=== PATIENT | female | born 1960 | race African-American/Black ===

== ENCOUNTER 2017-03-11 17:56 | Emergency (ER) | payer OTHER ==
[~2017-03-11] VITALS: Ht 175.3 cm; Wt 90.0 kg
[2017-03-11] MEDS ORDERED: ALBU4TAB6 PO (18:01)
[2017-03-11] MEDS ORDERED: ASPIRIN 81MG TABLET PO ONE (18:15)
[2017-03-11] MEDS ORDERED: IPRATROPIUM BROMIDE (0.02%) 0.5MG/2.5ML NEB HHN STA (18:25)
[2017-03-11] MEDS ORDERED: METHYLPREDNISOLONE SOD SUCC 125 MG/2 ML VIAL IV STA (18:25)
[2017-03-11] MEDS: ALBUTEROL (0.083%) 2.5MG/3ML NEB HHN SCH ×3 (18:45→20:21)
[2017-03-11 18:57] LABS: BASOPHILS % 0.9 % (0.0-2.0); EOSINOPHILS % 0.8 % (0.0-5.0); HEMATOCRIT. 45.5 % (36.0-48.0); HEMOGLOBIN. 14.9 g/dL (12.0-16.0); LYMPHOCYTES % 26.2 % (20.0-50.0); MEAN CORPUSCULAR HEMOGLOBIN 26.6 pg (28.0-32.0); MONOCYTES % 7.4 % (2.0-8.0); NEUTROPHILS % 64.7 % (40.0-76.0); PLATELET 309 x1000/uL (130-400); RED BLOOD CELL COUNT 5.61 mill/uL (4.2-5.4); RED CELL DISTRIBUTION WIDTH 14.3 % (11.6-14.6)
[2017-03-11 19:03] LABS: CHLORIDE 106 mEq/L (98-107)
[2017-03-11 19:06] LABS: PROTHROMBIN TIME 10.7 sec (9.4-11.6)
[2017-03-11 19:14] LABS: CARBON DIOXIDE 26 mEq/L (21-32); TROPONIN I < 0.02 ng/mL (0.00-0.04)
[2017-03-11] MEDS ORDERED: KETOROLAC 15MG/ML VIAL IV ONE (19:45)
[2017-03-11 20:39] VITALS: BP 151/94
== END 2017-03-11 21:02 | disposition home or self-care (01) ==
LOC: ER 18:13
DX: J45.991 Cough variant asthma (principal); J40 Bronchitis, not specified as acute or chronic; Z88.0 Allergy status to penicillin; Z98.51 Tubal ligation status
CPT/HCPCS: 36415; 71010; 80053; 83880; 84484; 85025; 85610; 93005; 94640; 94664; 96374; 96375; 99285; J1885; J2930; J7611